=== PATIENT | male | born 1960 | race Two or more races ===

== ENCOUNTER → 2025-06-17 | Outpatient (CLI) | payer BC, SELFPAY ==
--- NOTE | 2025-06-17 10:03 | XR_ITS ---
Examination: Hand, right 3 views Technique: Hand AP, oblique, lateral 3 views Date and time of exam: June 17, 2025 1033 hours INDICATIONS: Right hand pain beginning 3 weeks ago. FINDINGS: Moderate osteopenia No acute fracture No dislocation IMPRESSION: No acute fracture No erosive or other significant arthritic change
[2025-06-17 11:43] LABS: Glucose Estimated Average 278 mg/dL (80-131); Hemoglobin A1C 11.3 % Hgb (4.8-6.0)
[2025-06-17 11:44] LABS: Prostate Specific Antigen 4.08 ng/mL (0-4.00)
[2025-06-17 11:50] LABS: Alanine Aminotransferase 24 U/L (10-49); Albumin, Serum 4.7 gm/dL (3.4-4.8); Albumin/Globulin Ratio 1.5 (1.2-2.2); Alkaline Phosphatase 119 U/L (46-116); Anion Gap 11 (7-16); Aspartate Amino Transferase 23 U/L (0-34); BUN/Creatinine Ratio 12 Ratio (12-20); Bilirubin,Total 1.1 mg/dL (0.3-1.2); Blood Urea Nitrogen 17 mg/dL (9-23); Calcium 9.9 mg/dL (8.3-10.6); Calcium (Corrected) 9.9 mg/dL (8.5-10.1); Carbon Dioxide 28.4 mMol/L (20.0-31.0); Cardiac Risk Estimate 5.2 RATIO (4.0-6.7); Chloride 101 mMol/L (98-107); Cholesterol 156 mg/dL (132-200); Creatinine (Component) 1.4 mg/dL (0.6-1.3); Free T4 (Free Thyroxine) 1.33 ng/dL (0.89-1.76); Globulin 3.1 gm/dL (2.3-3.5); Glucose 208 mg/dL (74-106); HDL Cholesterol 30 mg/dL (40-60); LDL Cholesterol,Calculated 86 mg/dL (0-130); Osmolality,Calculated 286 (275-295); Potassium 4.1 mMol/L (3.4-5.1); Sodium 140 mMol/L (136-145); Thyroid Stimulating Hormone 1.54 uIU/mL (0.55-4.78); Total Protein 7.8 gm/dL (5.7-8.2); Triglycerides 200 mg/dL (30-150); eGFR 55 See Note
[2025-06-17 12:12] LABS: Creatinine MALB Rnd Ur 223 mg/dL (30-125); Microalbumin Creat Ratio 304 mg/gCrea (<30); Microalbumin, Random Urine 679 mg/L (0-300)
== END | disposition home or self-care (01) ==
LOC: CDIM 09:40 → COPL 10:44
PROVIDERS: PCP Family Medicine; Referring Provider Family Medicine; Visit Provider Radiology Diagnostic Radiology
DX: M79.641 Pain in right hand (principal); E11.65 Type 2 diabetes mellitus with hyperglycemia; E78.1 Pure hyperglyceridemia; E03.2 Hypothyroidism due to medicaments and other exogenous substances; N42.9 Disorder of prostate, unspecified
CPT/HCPCS: 36415; 73130; 80053; 80061; 82043; 82570; 83036; 84153; 84439; 84443